=== PATIENT | female | born 1980 | race Caucasian/White ===

== ENCOUNTER 2017-08-03 11:56 | Emergency (ER) | payer BC ==
[~2017-08-03] VITALS: Ht 162.6 cm; Wt 59.0 kg
[~2017-08-03 11:56] MED LIST: FLUOXETINE HCL40 MG PO; LORTAB 5/500 501 TAB PO; MOTRIN 600MG.600 MG PO; PERCOCET 5/3251 EACH PO; PHENERGAN 25MG.25 M1 PO; ROBAXIN-750750 MG PO; ZOFRAN ODT4 MG PO; Zofran4 MG PO
--- OUTSIDE RECORDS SUMMARY | 2017-08-03 11:58 | External Medical Summary Rpt | CCD ---
Author Author [employer] Address Unknown Phone Unavailable Purpose Continuity of Care Document - through 2016
--- OUTSIDE RECORDS SUMMARY | 2017-08-03 11:58 | External Medical Summary Rpt | CCD ---
Author Author [facility] Address Unknown Phone [email or web address] Purpose Continuity of Care Document - through 2016
--- OUTSIDE RECORDS SUMMARY | 2017-08-03 11:58 | External Medical Summary Rpt | CCD ---
Author Author [facility] Address Unknown Phone Purpose Continuity of Care Document - through 2016
--- OUTSIDE RECORDS SUMMARY | 2017-08-03 11:59 | External Medical Summary Rpt ---
Author Author [employer] Mccoy, [employer] Organization [employer] Address Unknown Phone Unavailable
--- OUTSIDE RECORDS SUMMARY | 2017-08-03 11:59 | External Medical Summary Rpt | CCD ---
Demographics Preferred Language Greek Marital Status Unknown Yazidism Affiliation Unknown Race Unknown Ethnic Group Unknown Author Author , MEHDI HARDING Address Unknown Phone Immunization No patient found.
--- OUTSIDE RECORDS SUMMARY | 2017-08-03 11:59 | External Medical Summary Rpt | CCD ---
Demographics Preferred Language Malay Marital Status Unknown Gnosticism Affiliation Unknown Race Unknown Ethnic Group Unknown Author Author , MEHDI HARDING Address Unknown Phone Immunization No patient found.
--- NOTE | 2017-08-03 12:34 | Urgent Treatment Center Report ---
History of Present Issue Date/Time Seen by Provider 08/03/17 1231 Visit Reason Pt arrived:Walked Presenting Problem:PT C/O SORE THROT, TORRES, AND EAR PAIN Location if Accident: Onset of symptoms date/time:/ or onset unknown for:MEDICAL HX UNKNOWN Have you (or family members/close friends) recently traveled outside the [place]? N If Yes, where/when: Have you had exposure to infectious disease within the past month? TB? Other? Specify: Patient state that she has not been feeling well for several days State that she is having sore throat, headache, and pain in both ears. State that her symptoms have continued to get worse over the last couple of days and she was worried that she may have been exposed to strep throat ALLERGIES Coded Allergies: No Known Allergies (05/17/16) Home Medications Active Scripts Methocarbamol (Robaxin 750MG) 750 MG PO Q8HP PRN spasm #30 TAB Ref 1 Prov: 05/17/16 IBUPROFEN (Motrin 600MG) 600 MG PO Q6HP PRN pain #20 TAB Ref 1 Prov: 05/17/16 Reported Medications Fluoxetine Hcl 40 MG PO DAILY #30 History Medical History General CAD? No Angina: No DC: No Hypertension? No Hyperlipidemia? No CHF? No DVT? No PE? No COPD? No Asthma? No Anemia? No GERD? No Gastric ulcers? No GI Bleed? No Hernia? No Thyroid Problems? No Hypothyroidism? No CVA? No Seizures? No Diabetes? No Renal Insuffiency? No UTI? No Stones? No BPH? No GB Disease: No Nephritic Syndrome? No Asplenia? No Hepatitis? No Sickle Cell Disease? No Arthritis? No Migraines? No Cataracts? No Glaucoma? No MRSA? No HIV? No TB? No Anxiety? No Depression? No Cancer? No More? No Immunization HX DT/Tetanus UNKNOWN Surgical Hx Previous Surgery?Y LAPROSCOPY X 2 Social History Smoking Hx Smoker: Never Smoker Tobacco: No Alcohol Alcohol: No Review of Systems All Other Systems Reviewed and Negative Constitutional chills ENT ear pain, nose congestion, throat pain. Respiratory cough Physical Exam Vital Signs Vital Signs Date Time Temp Pulse Resp B/P Pulse O2 O2 Flow FiO2 Ox Delivery Rate 08/03 1202 98.2 97 20 139/82 99 General Appearance normal appearance, WD/WN, no apparent distress Ear, Nose, Throat sinus pain/drainage, nasal congestion, Throat red, irritated tenderness noted maxillary sinuses bilateral ears no redness Respiratory Status Yes: trachea midline, chest symmetrical, non tender chest. No: respiratory distress. Cardiovascular normal exam, regular rate/rhythm Neurologic alert, normal exam, oriented x 3 Medical Decision Making LABS/Meds/Orders Pt receiving controlled substance in ED? No Results/Orders Laboratory Tests 08/03/17 1212: Group A Strep Screen NOT DETECTED Orders Procedure Date/time Status [facility] STREP SCREEN 08/03 1212 Complete Departure Departure Time of Disposition 1247 Disposition DC Home or Self Care(routine) Clinical Impression Primary Impression: Upper respiratory infection Qualifiers: URI type: acute pharyngitis Pharyngitis/tonsillitis etiology: unspecified etiology Qualified Code: J02.9 - Acute pharyngitis, unspecified Condition STABLE Referrals JESSICA ARGUETA (Family) Patient Instructions DI for Ear Pain-Adult, Sore Throat Additional Instructions * Monitor Temp. Tylenol and/or Ibuprofen as needed. ER if fever is no less than 101 despite alternating Tylenol and Ibuprofen * Encourage fluids, water, Gatorade, powerade, pedialyte if infant/toddler/or child * Warm salt water gargles for throat irritation *Warm fluids *Sore throat lozenges *Sleep elevated *humidifier or vaporizer Lots of rest Increase fluids, water, Gatorade, powerade *Flonase 2 sprays each nostril daily but may take 2-3 days to notice improvement with it *Bromfed may cause drowsiness. Know how it effect you or your child. Before driving, caring for small children or sending your child to school *Your throat swab was sent to lab for culture. Those results area typically sent to your primary care physician. Be sure to follow up in 2-3 days if no improvement so they can review those results and treat if necessary If you dont have primary care I recommend you get one, but in the mean time you will have to return to a walk in clinic Follow up IMMEDIATELY for new or worsening of symptoms OR no noticeable improvement over the next 48-72 hours. 911 immediately for any life threatening symptoms such as chest pain or difficulty breathing Discharge Counseling Counseled pt/family regarding diagnosis, test results, medications/RX, home care, follow up needs Prescriptions Current Visit Scripts Azithromycin (Zithromycin (Z-LOUIS) 250MG Tab) 250 MG PO DAILY #6 TAB TAKE TWO (2) TABLETS ON DAY 1, THEN ONE (1) TABLET DAY #2 THRU #5 Methylprednisolone (Medrol Dose [place]) 4 MG PO UD #1 L[place]IS TAKE DIRECTED ON PACKAGING at [id number]
[2017-08-03] MEDS ORDERED: ZITHROMAX Z PA250 MG PO (12:47)
[2017-08-03] MEDS ORDERED: MEDROL 4MG. DOSE4 MG PO (12:47)
[2017-08-03 12:51] VITALS: BP 139/82
== END 2017-08-03 12:52 | disposition home or self-care (01) ==
LOC: UTC 11:56
DX: J06.9 Acute upper respiratory infection, unspecified (principal)